=== PATIENT | female | born 2000 | race Caucasian/White ===

== ENCOUNTER 2019-08-15 09:14 | Outpatient (CLI) | payer BC ==
--- NOTE | 2019-08-15 09:40 | ULT ---
Renal ultrasound: 08/15/2019 COMPARISON: None HISTORY: Right-sided flank pain TECHNIQUE: Multiplanar grayscale sonographic imaging of the kidneys and urinary bladder obtained. FINDINGS: The right kidney measures 10.6 x 4.0 x 4.7 cm and the left kidney measures 10.6 x 4.6 x 5.4 cm. No renal mass, hydronephrosis, or renal stone noted on either side. Urinary bladder is grossly unremarkable with bilateral ureteral jets seen. IMPRESSION: Unremarkable renal ultrasound.
== END 2019-08-15 09:15 | disposition home or self-care (01) ==
LOC: ULT 09:14 → SCSULT 09:15
PROVIDERS: ATTEND Physician Assistant
DX: R10.9 Unspecified abdominal pain (principal)
CPT/HCPCS: 76770

== ENCOUNTER 2020-01-23 08:07 | Outpatient (CLI) | payer BC ==
--- NOTE | 2020-01-23 08:52 | ULT ---
ULTRASOUND SOFT TISSUES OF THE INGUINAL CANALS: HISTORY: Inguinal lymphadenopathy. FINDINGS/IMPRESSION: Sonographic evaluation of the inguinal regions was performed bilaterally. There are enlarged bilater al inguinal lymph nodes with increased vascularity, the largest measuring 1.3 x 0.6 x 2.5 cm on the r ight and 2.8 x 0.7 x 1.1 cm on the left. POS: [facility]
== END 2020-01-23 08:08 | disposition home or self-care (01) ==
LOC: SCSULT 08:07
PROVIDERS: ATTEND Physician Assistant
DX: R59.0 Localized enlarged lymph nodes (principal)
CPT/HCPCS: 76999